=== PATIENT | female | born 1995 | race Caucasian/White ===

== ENCOUNTER → 2018-08-16 | Outpatient (REF) | payer SELFPAY | LOC: M LAB LCGH 11:11 | PROVIDERS: ATTEND Obstetrics & Gynecology | DX: Z34.90 Encounter for supervision of normal pregnancy, unspecified, unspecified trimester (principal); Z12.4 Encounter for screening for malignant neoplasm of cervix ==

== ENCOUNTER → 2019-02-27 | Outpatient (REF) | LOC: M LAB LCGH 09:14 | PROVIDERS: ATTEND Obstetrics & Gynecology | DX: O43.129 Velamentous insertion of umbilical cord, unspecified trimester (principal) ==